=== PATIENT | female | born 1975 | race Caucasian/White ===

== ENCOUNTER 2017-02-18 14:16 | Inpatient (IN) ==
--- NOTE | 2017-02-18 15:09 | Emergency Department Note ---
Arrival - Arrival Chief Complaint: Abscess Stated Complaint: Perirectal abscess ED Nursing Triage Note: Pt c/o ?perirectal abscess x 2 days. States she has had 2 previous perirectal abscesses. Mode of Arrival: Ambulatory Source: Patient Time Seen by Provider: 02/18/17 14:41 - History of Present Illness HPI Narrative: 41 y/o white female presents to the ER complaining of "perirectal abscess and fever". Symptoms started two days ago. Pain is constant and is exacerbated with bowel movements. Past medical history significant for I&D of perirectal abscess x [address] Cheng that completely resolved. Patient denies dysuria or vaginal discharge. Last menstrual cycle two weeks ago. Onset (ago): day(s) (2) Severity: mild Quality: aching Date of Last Menstrual Period: 2 wks ago Allergies/Adverse Reactions: Allergies Allergy/AdvReac Type Severity Reaction Status Date / Time No Known Allergies Allergy Verified 03/08/16 10:47 Home Medications: Home Medications Medication Instructions Recorded Confirmed Type Levofloxacin Tab [Levaquin Tab] 750 mg PO DAILY #14 tablet 02/19/17 Rx metroNIDAZOLE INJ [Flagyl Inj] 500 mg IV Q8H #42 02/19/17 Rx metroNIDAZOLE TAB [Flagyl Cap/Tab] 500 mg PO TID #42 tablet 02/19/17 Rx Review of System - Review of System 12 point system: reviewed and no additional remarkable complaints except as stated - Review of System Genitourinary female: Present: other (rectal pain ) Medical,Surgical,& Family Hx - Medical History Other: History of: Miscellaneous Medical Problems (SURGERY FOR PATEL-RECTAL ABSCESS IN 2013) - Social History Smoking Status: Never smoker Exam Vital Signs: Vital Signs Temperature 98.6 F 02/19/17 13:07 Pulse Rate 79 02/19/17 13:07 Respiratory Rate 16 02/19/17 13:07 Blood Pressure 110/60 02/19/17 13:07 O2 Sat by Pulse Oximetry 97 02/19/17 13:07 - General General appearance: alert, in no apparent distress - ENT ENT exam: Present: normal exam, normal oropharynx, mucous membranes moist - Chest Chest inspection: Present: normal inspection - Respiratory Respiratory exam: Present: normal lung sounds bilaterally - Cardiovascular Cardiovascular exam: Present: regular rate, normal rhythm, normal heart sounds - Abdominal Exam Abdominal exam: Present: soft, normal bowel sounds. Absent: tenderness - Rectal Exam Rectal exam: Present: normal inspection, normal rectal tone, tenderness (mild ) - Extremities Exam Extremities exam: Present: normal inspection, full ROM - Back Exam Back exam: Absent: CVA tenderness (R), CVA tenderness (L) - Neurological Exam Neurological exam: Present: alert, oriented X3 - Psychiatric Psychiatric exam: Present: normal affect, normal mood - Skin Skin exam: Present: warm, dry Course Course Narrative: 1600: Dr. Cheng in ER to evaluate patient. - Consultations Consultation #1: Dr. Cheng Time: 15:05 (Discussed case with Dr. Cheng. Will order a CT abd/Pelvis with IV and oral contrast ) Results - Labs CBC & BMP: 02/19/17 04:30 02/18/17 14:59 Lab Results: I have reviewed the patients labs - Diagnostic Findings Procedure: CT Abdomen and Pelvis: image reviewed by me, report reviewed by me ( perirectal abscess- see dictated report ) Disposition Clinical Impression: Perirectal abscess, UTI (urinary tract infection) Disposition: Still a Patient Condition: Stable New Prescriptions: Rx's Medication Instructions Recorded Levofloxacin Tab [Levaquin Tab] 750 mg PO DAILY #14 tablet 02/19/17 metroNIDAZOLE INJ [Flagyl Inj] 500 mg IV Q8H #42 02/19/17 metroNIDAZOLE TAB [Flagyl Cap/Tab] 500 mg PO TID #42 tablet 02/19/17
[2017-02-18 15:21] LABS: Basophils % 0.1 % (0.0-0.8); Eosinophils % 0.3 % (0.00-10.9); Hematocrit 38.8 VOL% (35.7-47.0); Hemoglobin 13.3 GM/DL (12.0-16.0); Immature Granulocytes % 0.4 %; Immature Granulocytes Absolute 0.06 #; Lymphocytes # 2.3 10*3/uL (1.4-4.0); Lymphocytes % 17.4 % (21.3-54.2); Mean Corpuscular HGB Conc 34.3 GM/DL (32-36); Mean Corpuscular Hemoglobin 33 PG (27-34); Mean Corpuscular Volume 94.9 FL (87-102); Mean Platelet Volume 10.5 FL (9.6-12.0); Monocytes % 7.6 % (1.7-12.7); Neutrophils # 9.9 10*3/uL (1.4-7.4); Neutrophils % 74.2 % (38.7-73.9); Platelet Count 267 T/CUMM (130-400); Red Blood Count 4.09 MC/CUMM (3.8-5.5); Red Cell Distribution Width 13.5 % (9.3-17.3); White Blood Count 13.4 T/CUMM (4-12)
[2017-02-18 15:46] LABS: Apearance,Urine Slightly Hazy (Clear); Bacteria,Urine Occasional /HPF (Few); Bilirubin,Urine Negative (Negative); Blood, Urine Moderate mg/dL (Negative); Glucose,Urine (UA) Negative (Negative); Ketones,Urine Negative (Negative); Mucus,Urine Few /LPF (Occasional); Nitrite,Urine Negative (Negative); Protein,Urine Negative; RBC,Urine 5 /HPF (0-4); Squamous Epithelial Cell,Urine Few /HPF (0-10); Urine Color Yellow (Yellow); Urine Specific Gravity 1.028 (1.001-1.035); Urine Urobilinogen < 2.0 EU/DL (0.2-1.0); WBC,Urine 14 /HPF (0-6)
[2017-02-18 15:47] LABS: Albumin 3.8 G/DL (3.4-5.0); Bilirubin,Total 0.8 MG/DL (0.2-1.0); Calcium 9.1 MG/DL (8.5-10.1); Osmolality,Calculated 274.5 MOS/KG (273-304); Potassium 3.8 MMOL/L (3.5-5.1); Total Protein 7.2 G/DL (6.4-8.3)
--- NOTE | 2017-02-18 16:26 | General Surg History&Physical ---
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 She has had intermittent recurrent abscesses and she presents with similar symptoms today. She does have evidence of possible urinary tract infection on her urinalysis. CT scan of abdomen and pelvis with IV and p.o. contrast is in the works and I will follow-up the results of this to determine further treatment in the hospital. Current Visit: Yes History of Present Illness Chief complaint: Anal pain History of present illness: Ms. Kern is a 41 year old female with history of recurrent perirectal abscesses and rectovaginal fistula that was treated with drainage and antibiotics and completely resolved in the past. She had a workup for Crohn's disease which was negative but gastroenterology has recommended specialty referral but she has not had this yet. She has no dysuria or frequency or urgency. She has had no discharge from the vaginal area or the rectum other than her usual bowel movements to the rectum. Home Medications Medication Instructions Recorded Confirmed Type No Known Home Medications [No 02/18/17 02/18/17 History Known Home Medications] Allergies Allergy/AdvReac Type Severity Reaction Status Date / Time No Known Allergies Allergy Verified 03/08/16 10:47 Medical,Surgical,& Family Hx - Medical History Other: History of: Miscellaneous Medical Problems (SURGERY FOR PATEL-RECTAL ABSCESS IN 2013) - Social History Smoking Status: Never smoker Exam - Constitutional Vitals: Period Temp Pulse Resp BP Sys/[place] Pulse Ox Last 24 Hr 98.6 F-98.6 F 109-109 18-18 129-129/94-94 100 General appearance: no acute distress, over weight - Head Head exam: Present: normal inspection, normocephalic - Eye Eye exam: Present: EOMI. Absent: scleral icterus Pupils: Present: EDMUND - ENT ENT exam: Present: normal exam Mouth exam: Present: normal external inspection, normal voice - Neck Neck exam: Present: normal inspection, trachea midline - Respiratory Respiratory exam: Present: clear to auscultation bilaterally. Absent: accessory muscle use, chest wall tenderness - Cardiovascular Cardiovascular exam: Present: RRR. Absent: systolic murmur, tachycardia - GI/Abdominal GI/Abdominal exam: Present: normal bowel sounds, soft. Absent: tenderness, rebound - Extremities Exam Extremities exam: Present: normal inspection, normal capillary refill - Back Exam Back exam: Present: normal inspection - Neurological Exam Neurological exam: Present: alert, oriented X3 Speech: Present: normal - Skin Skin exam: Present: normal color, warm - Constitutional Constitutional: Present: as per HPI - EENT Nose, mouth and throat: Present: as per HPI - Cardiovascular Cardiovascular: Present: as per HPI - Respiratory Respiratory: Present: as per HPI - Gastrointestinal Gastrointestinal: Present: as per HPI - Genitourinary Genitourinary: Present: as per HPI - Musculoskeletal Musculoskeletal: Present: as per HPI - Neurological Neurological: Present: as per HPI - Endocrine Endocrine: Present: as per HPI Hematologic/Lymphatic: Present: as per HPI Results - Labs CBC & BMP: 02/18/17 14:59 02/18/17 14:59
--- NOTE | 2017-02-18 17:42 | CT Report ---
CT abdomen pelvis w con Indication: Rectal pain and fever. History of perirectal abscess. Comparison: None. Technique: CT of the abdomen and pelvis was performed following administration of intravenous contrast. The CT examination was performed using one or more of the following dose reduction techniques: Automatic exposure control, adjustment of the mA and kV according to patient size, or iterative reconstruction techniques. Findings: Lower chest: No acute findings are noted within the lower chest. Liver: The liver demonstrates no evidence of focal hepatic mass or evidence of acute pathology. Gallbladder: Gallbladder demonstrates no significant abnormality. Spleen: Spleen demonstrates no significant abnormality. Pancreas: Pancreas demonstrates no significant abnormality. Adrenal glands: The adrenal glands demonstrate no significant abnormalities. Kidneys: Kidneys demonstrate no significant abnormality. Aorta: The aorta demonstrates no acute findings. Inferior vena cava: Inferior vena cava is normal in appearance. Lymph nodes: Borderline to minimally enlarged pelvic sidewall lymph nodes on the left image #113 measure up to 7 mm short axis dimension. Stomach and bowel: The rectum demonstrates diffuse wall thickening and complex fluid collection with lobulated margins and thin peripheral enhancing wall compatible with abscess is present along the left lateral margin of the rectum extending into the perirectal soft tissues. A moderate degree of fat stranding is associated. This measures 10 mm to 11 mm in transverse dimension, 26 mm in AP dimension, and up to 53 mm in craniocaudal dimension. A few scattered diverticula are present in the descending large bowel. Stomach, small bowel, and large bowel otherwise unremarkable. Appendix is not identified and may be surgically absent. Intrapelvic contents: Inflammatory changes from the above described perirectal abscess about the lower uterine segment and cervix. The uterine cavity is somewhat prominent which is nonspecific finding and may reflect physiologic etiology. No acute findings are otherwise noted within the pelvis. Osseous structures: The imaged osseous structures of the lumbar spine, pelvis, and proximal femurs demonstrate no acute findings. Soft tissues and musculature: Soft tissues and musculature of the body wall demonstrate no acute findings. Impression: 1. Perirectal fluid collection compatible with abscess is present along the left lateral margin of the rectum as detailed above. Associated fat stranding within the perirectal fossa is additionally present. 2. Borderline to minimally enlarged left pelvic sidewall lymph nodes are favored to reflect reactive etiology. 02/18/2017 5:35 PM PROCEDURE INTERPRETED AT [facility] Final Report Signed by: Dr. Dago Bess
[2017-02-18] MEDS ORDERED: LEVOFLOXACIN INJ 750 MG in PREMIX 1 EACH IV STA (17:52)
[2017-02-18] MEDS ORDERED: metroNIDAZOLE INJ 500 MG in PREMIX 1 EACH IV STA (17:52)
[2017-02-18] MEDS ORDERED: LEVOFLOXACIN INJ 150 ML IV ONE (18:02)
[2017-02-18] MEDS ORDERED: ONDANSETRON 4 MG/2 ML VIAL IV PRN (20:19)
[2017-02-18] MEDS ORDERED: ACETAMINOPHEN 325 MG TABLET PO PRN (20:19)
[2017-02-18] MEDS: CIPROFLOXACIN INJ 400 MG in PREMIX 1 EACH IV SCH (20:43)
[2017-02-18] MEDS: metroNIDAZOLE INJ 500 MG in PREMIX 1 EACH IV SCH (22:54)
[2017-02-19 05:30] LABS: Basophils % 0.2 % (0.0-0.8); Eosinophils # 0.1 10*3/uL (0.0-0.87); Eosinophils % 0.4 % (0.00-10.9); Hematocrit 35.6 VOL% (35.7-47.0); Hemoglobin 12.3 GM/DL (12.0-16.0); Immature Granulocytes % 0.5 %; Immature Granulocytes Absolute 0.06 #; Lymphocytes % 15.7 % (21.3-54.2); Mean Corpuscular HGB Conc 34.6 GM/DL (32-36); Mean Corpuscular Hemoglobin 33 PG (27-34); Mean Corpuscular Volume 94.7 FL (87-102); Monocytes # 1.3 10*3/uL (0.11-0.8); Monocytes % 9.7 % (1.7-12.7); Neutrophils # 9.5 10*3/uL (1.4-7.4); Neutrophils % 73.5 % (38.7-73.9); Platelet Count 245 T/CUMM (130-400); Red Blood Count 3.76 MC/CUMM (3.8-5.5); Red Cell Distribution Width 13.5 % (9.3-17.3); White Blood Count 12.9 T/CUMM (4-12)
[2017-02-19] MEDS: metroNIDAZOLE INJ 500 MG in PREMIX 1 EACH IV SCH (06:15)
[2017-02-19] MEDS ORDERED: PANTOPRAZOLE 40 MG TABLET PO SCH (09:00)
[2017-02-19] MEDS ORDERED: LIDOCAINE 1%/EPI INJ 20 ML VIAL ONE (11:21)
[2017-02-19] MEDS ORDERED: BUPIVACAINE 0.25% 50 ML VIAL ONE (11:21)
--- NOTE | 2017-02-19 12:14 | Operative Note ---
Date of procedure: 02/19/17 Pre-op diagnosis: Recurrent perirectal abscess Post-op diagnosis: same Procedure: Preoperative diagnosis Recurrent perirectal abscess Postoperative diagnosis Same Procedures performed 1. Rectal exam under anesthesia 2. Bimanual pelvic exam under anesthesia Findings No discrete abscess cavity was able to be palpated on rectal and bimanual examination. The area on CT scan was able to be completely reached based on measurements on CT scan but there was nothing that it was felt needed to be opened over drained. This likely represents a phlegmon and small abscess that should be amenable to treatment with antibiotics alone. I also discussed this with interventional radiology who did not feel that the fluid collection was large enough to require drainage percutaneously. Complications None apparent Specimen None Anesthesia General LMA Blood loss Minimal Indications Recurrent perirectal abscess Description of procedure The patient was taken to the operating room and transferred to the operating table in supine position. Pressure points were padded and SCDs placed lower extremities. General LMA anesthesia was administered. Patient was placed in lithotomy position. Perineum was prepped and draped sterilely. Timeout was called. Rectal exam under anesthesia revealed a slight firmness at about 8 cm from the anal verge on manual examination but nothing that was fluctuant or had an area that would be amenable to drainage transrectally. Bimanual examination was then also performed with clean gloves and revealed no evidence of discrete abscess cavity or drainage into the vaginal area. Dr. Mazariegos was willing to come into the room to give a second opinion and he agreed that this area on CT scan was not worthy of opening of the rectum and searching for an abscess based on the examination the OR. We will treat this with antibiotics and follow her with repeat CT scan as an outpatient. Postoperative plan Discharge home with p.o. antibiotics Repeat CT scan in 2 weeks Anesthesia: ROGER Surgeon / Physician: Tiburcio Cheng Estimated blood loss: minimal Specimens: none sent Condition: stable Disposition: PACU Results - Labs CBC & BMP: 02/19/17 04:30 02/18/17 14:59 Discharge Plan - Discharge Data Disposition: Disch To Home/Self Care Condition at Discharge: Stable Discharge Diet: advance to your usual diet Activity: resume usual activities as tolerated Hygiene: may shower Weight Bearing at Discharge: weight bear as tolerated Driving: no restrictions Contact your physician if you experience:: fever over 101, Difficulty voiding, Redness or swelling, Nausea/Vomiting, Shortness of breath, Bleeding, pain uncontrolled by pain medications - Discharge Medications New Levofloxacin Tab [Levaquin Tab] 750 mg PO DAILY #14 tablet metroNIDAZOLE INJ [Flagyl Inj] 500 mg IV Q8H #42 metroNIDAZOLE TAB [Flagyl Cap/Tab] 500 mg PO TID #42 tablet - Follow Up or Referral Follow Up: Tiburcio Cheng MD [Primary Care Provider] - 2 Weeks - Forms/Instructions
[2017-02-19] MEDS ORDERED: MIDAZOLAM 2 MG/2 ML VIAL ONE (12:20)
[2017-02-19] MEDS ORDERED: PROPOFOL 200 MG/20 ML VIAL IV ONE (12:20)
[2017-02-19] MEDS ORDERED: fentaNYL 100 MCG/2 ML VIAL ONE (12:20)
[2017-02-19] MEDS ORDERED: ONDANSETRON 4 MG/2 ML VIAL ONE (12:20)
[2017-02-19] MEDS ORDERED: SEVOFLURANE 1 UNIT/15 MINUTE INH ONE (12:20)
--- NOTE | 2017-02-19 12:24 | Anesthesia Post-Op ---
Anesthesia Post OP - Post Ansesthetic Evaluation Patient seen in post op: Yes Resp: within normal limits CV: within normal limits Mental: within normal limits Temp: within normal limits [id number]: within normal limits Nausea and Vomiting: within normal limits Pain: within normal limits
[2017-02-19] MEDS ORDERED: LACTATED RINGERS 1,000 ML IV SCH (12:30)
[2017-02-19] MEDS ORDERED: HYDROmorphone 2 MG/1 ML VIAL IV PRN (12:35)
[2017-02-19] MEDS ORDERED: ONDANSETRON 4 MG/2 ML VIAL IV PRN (12:35)
[2017-02-19] MEDS ORDERED: LEVOFLOXACIN 750 MG TABLET PO SCH (12:59)
[2017-02-19 13:13] VITALS: BP 110/60
[2017-02-19] MEDS ORDERED: metroNIDAZOLE 500 MG TABLET PO SCH (14:00)
[2017-02-19] MEDS: CIPROFLOXACIN INJ 400 MG in PREMIX 1 EACH IV SCH (15:00)
== END 2017-02-19 15:58 | disposition home or self-care (01) | DRG 394 ==
LOC: N.ED 14:16 → N.EDINP 17:54 → N.5E 19:40
PROVIDERS: ADMIT Surgery; ATTEND Surgery

== ENCOUNTER 2018-12-08 09:27 | Inpatient (IN) ==
[2018-12-08 11:05] LABS: Basophils % 0.2 % (0.0-0.8); Eosinophils # 0.1 10*3/uL (0.0-0.87); Eosinophils % 0.3 % (0.00-10.9); Hematocrit 33.4 VOL% (35.7-47.0); Hemoglobin 10.9 GM/DL (12.0-16.0); Immature Granulocytes % 0.6 %; Immature Granulocytes Absolute 0.09 #; Lymphocytes # 1.4 10*3/uL (1.4-4.0); Lymphocytes % 9.2 % (21.3-54.2); Mean Corpuscular HGB Conc 32.6 GM/DL (32-36); Mean Corpuscular Volume 95.2 FL (87-102); Mean Platelet Volume 10.9 FL (9.6-12.0); Monocytes % 8.4 % (1.7-12.7); Neutrophils % 81.3 % (38.7-73.9); Platelet Count 297 T/CUMM (130-400); Red Blood Count 3.51 MC/CUMM (3.8-5.5); Red Cell Distribution Width 14.5 % (9.3-17.3); White Blood Count 15.5 T/CUMM (4-12)
[2018-12-08] MEDS: SODIUM CHLORIDE 0.9% 1,000 ML IV SCH (11:10)
[2018-12-08 11:22] LABS: Apearance,Urine CLOUDY (Clear); Bilirubin,Urine Negative (Negative); Blood, Urine Large mg/dL (Negative); Glucose,Urine (UA) Negative (Negative); Ketones,Urine 5 mg/dL (Negative); Mucus,Urine Many /LPF (Occasional); Nitrite,Urine Negative (Negative); Protein,Urine 100 MG/DL; RBC,Urine 22 /HPF (0-4); Squamous Epithelial Cell,Urine Many /HPF (0-10); Urine Color Amber (Yellow); Urine Specific Gravity 1.036 (1.001-1.035); Urine Urobilinogen < 2.0 EU/DL (0.2-1.0); WBC,Urine 119 /HPF (0-6)
[2018-12-08 11:29] LABS: Albumin 3.5 G/DL (3.4-5.0); Bilirubin,Total 0.9 MG/DL (0.2-1.0); Calcium 8.7 MG/DL (8.5-10.1); Osmolality,Calculated 278.3 MOS/KG (273-304)
[2018-12-08] MEDS ORDERED: PIPERACILLIN/TAZOBACTAM 3,375 MG in SODIUM CHLORIDE 0.9% 100 ML IV STA (11:47)
[2018-12-08] MEDS ORDERED: VANCOMYCIN INJ 1,000 MG in SODIUM CHLORIDE 0.9% 250 ML IV STA (11:47)
[2018-12-08] MEDS ORDERED: VANCOMYCIN 1,000 MG VIAL ONE (12:14)
[2018-12-08] MEDS ORDERED: ONDANSETRON 4 MG/2 ML VIAL IV PRN (13:48)
[2018-12-08] MEDS ORDERED: HYDROmorphone 2 MG/1 ML VIAL IV PRN (13:48)
[2018-12-08] MEDS ORDERED: BISACODYL 5 MG TABLET PO PRN (13:48)
[2018-12-08] MEDS ORDERED: ACETAMINOPHEN 325 MG TABLET PO PRN (13:48)
[2018-12-08] MEDS ORDERED: KETOROLAC 10 MG TABLET PO PRN (13:48)
[2018-12-08] MEDS ORDERED: POTASSIUM CHLORIDE 20 MEQ TABLET PO ONE (14:22)
[2018-12-08] MEDS: PIPERACILLIN/TAZOBACTAM 3,375 MG in SODIUM CHLORIDE 0.9% 100 ML IV SCH ×2 (16:22→21:26)
[2018-12-08] MEDS: LACTATED RINGERS 1,000 ML IV SCH (16:31)
[2018-12-09] MEDS: PIPERACILLIN/TAZOBACTAM 3,375 MG in SODIUM CHLORIDE 0.9% 100 ML IV SCH ×3 (05:15→22:52)
[2018-12-09 05:33] LABS: Basophils % 0.2 % (0.0-0.8); Eosinophils # 0.1 10*3/uL (0.0-0.87); Eosinophils % 0.6 % (0.00-10.9); Hematocrit 30.1 VOL% (35.7-47.0); Hemoglobin 9.6 GM/DL (12.0-16.0); Immature Granulocytes % 0.7 %; Lymphocytes # 1.8 10*3/uL (1.4-4.0); Lymphocytes % 12.7 % (21.3-54.2); Mean Corpuscular HGB Conc 31.9 GM/DL (32-36); Mean Corpuscular Volume 95.6 FL (87-102); Mean Platelet Volume 10.7 FL (9.6-12.0); Monocytes % 9.9 % (1.7-12.7); Neutrophils % 75.9 % (38.7-73.9); Platelet Count 258 T/CUMM (130-400); Red Blood Count 3.15 MC/CUMM (3.8-5.5); Red Cell Distribution Width 14.5 % (9.3-17.3); White Blood Count 14.2 T/CUMM (4-12)
[2018-12-09 06:01] LABS: Calcium 8.2 MG/DL (8.5-10.1); Osmolality,Calculated 279.1 MOS/KG (273-304)
[2018-12-09] MEDS ORDERED: LIDOCAINE 1%/EPI INJ 20 ML VIAL ONE (08:43)
[2018-12-09] MEDS ORDERED: BUPIVACAINE 0.5% 50 ML VIAL ONE (08:43)
[2018-12-09] MEDS: PANTOPRAZOLE 40 MG TABLET PO SCH (08:58)
[2018-12-09] MEDS: LACTATED RINGERS 1,000 ML IV SCH ×2 (09:02→18:50)
[2018-12-09] MEDS ORDERED: PROPOFOL 200 MG/20 ML VIAL IV ONE (10:46)
[2018-12-09] MEDS ORDERED: MIDAZOLAM 2 MG/2 ML VIAL ONE (10:47)
[2018-12-09] MEDS ORDERED: fentaNYL 100 MCG/2 ML VIAL ONE (10:47)
[2018-12-09] MEDS ORDERED: ONDANSETRON 4 MG/2 ML VIAL ONE (10:47)
[2018-12-09] MEDS ORDERED: DEXAMETHASONE 4 MG/1 ML VIAL ONE (10:47)
[2018-12-09] MEDS ORDERED: PHENYLEPHRINE 1 MG/10 ML SYRINGE IV ONE (10:48)
[2018-12-09] MEDS ORDERED: GLYCOPYRROLATE 0.4 MG/2 ML VIAL ONE (10:48)
[2018-12-09] MEDS ORDERED: SEVOFLURANE 1 UNIT/15 MINUTE INH ONE (10:48)
[2018-12-09] MEDS: DULoxetine 30 MG CAPSULE PO SCH (15:38)
[2018-12-09] MEDS: SODIUM CHLORIDE 0.9% 1,000 ML IV SCH ×5 (22:55→22:59)
[2018-12-10 05:27] LABS: Basophils % 0.2 % (0.0-0.8); Eosinophils % 0.1 % (0.00-10.9); Hematocrit 30.1 VOL% (35.7-47.0); Hemoglobin 9.6 GM/DL (12.0-16.0); Immature Granulocytes % 0.4 %; Immature Granulocytes Absolute 0.05 #; Lymphocytes # 1.3 10*3/uL (1.4-4.0); Lymphocytes % 11.7 % (21.3-54.2); Mean Corpuscular HGB Conc 31.9 GM/DL (32-36); Mean Platelet Volume 11.5 FL (9.6-12.0); Monocytes % 6.6 % (1.7-12.7); Platelet Count 302 T/CUMM (130-400); Red Blood Count 3.17 MC/CUMM (3.8-5.5); Red Cell Distribution Width 14.4 % (9.3-17.3); White Blood Count 11.1 T/CUMM (4-12)
[2018-12-10] MEDS: PIPERACILLIN/TAZOBACTAM 3,375 MG in SODIUM CHLORIDE 0.9% 100 ML IV SCH (06:17)
[2018-12-10 07:58] VITALS: BP 125/70
[2018-12-10] MEDS: DULoxetine 30 MG CAPSULE PO SCH (08:46)
[2018-12-10] MEDS: PANTOPRAZOLE 40 MG TABLET PO SCH (08:46)
[2018-12-10] MEDS ORDERED: ADIPEX P PO SCH (09:00)
[2018-12-10] MEDS ORDERED: CIPROFLOXACIN 500 MG TABLET PO SCH (09:30)
[2018-12-10] MEDS ORDERED: AMOXICILLIN/CLAV 875 MG TABLET PO SCH (09:30)
[2018-12-10] MEDS ORDERED: metroNIDAZOLE 500 MG TABLET PO SCH (15:00)
== END 2018-12-10 11:29 | disposition home or self-care (01) | DRG 394 ==
LOC: N.ED 09:27 → N.EDINP 13:48 → N.3E 14:45
PROVIDERS: ADMIT Surgery; ATTEND Surgery